=== PATIENT | female | born 1975 | race Caucasian/White ===

== ENCOUNTER 2021-05-30 22:15 | Inpatient (IN) | payer OTHER ==
[~2021-05-30] VITALS: Ht 162.6 cm; Wt 64.0 kg
[2021-05-30] MEDS ORDERED: IV NORMAL SALINE 1000ML BAG 1,000 ML IV ONE (23:00)
[2021-05-30] MEDS ORDERED: KETOROLAC 15 MG/ML VIAL. IVP ONE (23:00)
--- NOTE | 2021-05-30 23:00 | PHYS DOC ---
Past Medical History Past Medical History: No Pertinent History Past Surgical History: No Surgical History Smoking Status: Never Smoker Alcohol Use: None Drug Use: None General Adult EDM: Chief Complaint: SHORTNESS OF BREATH Problems: (1) COVID-19 HPI: HPI: 46-year-old female with no pertinent medical history presents to the emergency department complaining of shortness of breath and productive cough for the last 3 days along with headache intermittently no sudden onset fatigue and body aches. She was recently diagnosed with Covid approximately 9 days ago and is unvaccinated. She denies any further complaint. With EMS she was satting in the high 80s without oxygen, she was placed on 4 L nasal cannula with good improvement in her oxygen saturation. The patient admits to fever and chills; denies nausea, vomiting, chest pain, abdominal pain, urinary symptoms, recent trauma, or any other complaints. She has history of tubal ligation Review of Systems: Review of Systems: Constitutional: Admits to fever and chills. Eyes: Denies change in vision, pain. HENT: Denies congestion or sore throat. Respiratory: Admits to cough and shortness of. Cardiovascular: Denies chest pain or edema. GI: Denies abdominal pain, nausea. : Denies change in urination, dysuria. Musculoskeletal: Denies extremity pain, or trauma. Skin: Denies rash, skin change. Neurologic: Admits to headache, denies focal weakness. Psychiatric: Denies depression or anxiety. All other systems reviewed as negative except for what was mentioned in the HPI. Heart Score: C/O Chest Pain: No Family History: Family History: Noncontributory Current Medications: My Orders - KRISTYN MONTES DO Procedure Category Date Status Time Cbc W [employer] LAB 05/30/21 Logged 22:55 Basic Metabolic Panel LAB 05/30/21 Logged 22:55 Sars Cov2 ([place]) LAB 05/30/21 Logged 22:55 Sars Antigen [place] Rapid LAB 05/30/21 Logged 22:55 Chest Ap Only RAD 05/30/21 Logged 22:55 Urine Test HERMES 05/30/21 In Process 22:55 Ketorolac 15mg Vial PHA 05/30/21 Logged (Toradol 15mg Vial) 23:00 Iv Normal Saline PHA 05/30/21 Logged 1000ml Bag (Iv Sodium 23:00 Allergies: Allergies: Allergies Coded Allergies Type Severity Reaction Last Updated Verified No Known Drug Allergies 05/30/21 No Physical Exam: PE: Constitutional: No acute distress, appears unwell. HENT: Atraumatic, bilateral external ears normal, nose normal. Eyes: PERRLA, EOMI, conjunctiva normal, no discharge. Neck: Normal range of motion, supple, no stridor. Cardiovascular: Heart rate regular rhythm. 2+ radial pulses Lungs & Thorax: No respiratory distress, symmetrical expansion. Coarse breath sounds bilaterally. Abdomen: Soft, no tenderness Skin: Warm, dry. Extremities: No tenderness, no cyanosis, ROM intact, no edema. Neurologic: Alert and oriented X 3, normal motor function, normal sensory function, no focal deficits noted. Non ataxic gait. GCS 15. Psychologic: Affect normal, judgment normal, mood normal. Current Patient Data: Labs: Laboratory Tests Test 05/30/21 22:39 05/31/21 00:38 White Blood Count 7.9 x10^3/uL (4.0-11.0) Red Blood Count 4.45 x10^6/uL (3.50-5.40) Hemoglobin 14.4 g/dL (12.0-15.5) Hematocrit 41.1 % (36.0-47.0) Mean Corpuscular Volume 92 fL (79-100) Mean Corpuscular Hemoglobin 33 pg (25-35) Mean Corpuscular Hemoglobin Concent 35 g/dL (31-37) Red Cell Distribution Width 13.2 % (11.5-14.5) Platelet Count 298 x10^3/uL (140-400) Neutrophils (%) (Auto) 86 % (31-73) Lymphocytes (%) (Auto) 8 % (24-48) Monocytes (%) (Auto) 6 % (0-9) Eosinophils (%) (Auto) 0 % (0-3) Basophils (%) (Auto) 0 % (0-3) Neutrophils # (Auto) 6.8 x10^3/uL (1.8-7.7) Lymphocytes # (Auto) 0.6 x10^3/uL (1.0-4.8) Monocytes # (Auto) 0.4 x10^3/uL (0.0-1.1) Eosinophils # (Auto) 0.0 x10^3/uL (0.0-0.7) Basophils # (Auto) 0.0 x10^3/uL (0.0-0.2) Sodium Level 134 mmol/L (136-145) Potassium Level 3.3 mmol/L (3.5-5.1) Chloride Level 95 mmol/L (98-107) Carbon Dioxide Level 29 mmol/L (21-32) Anion Gap 10 (6-14) Blood Urea Nitrogen 20 mg/dL (7-20) Creatinine 0.9 mg/dL (0.6-1.0) Estimated GFR (Cockcroft-Gault) 67.4 Glucose Level 113 mg/dL (70-99) Calcium Level 8.9 mg/dL (8.5-10.1) SARS-CoV-2 Antigen (Rapid) Positive (NEGATIVE) Vital Signs: Vital Signs Date Time Temp Pulse Resp B/P (MAP) Pulse Ox O2 Delivery O2 Flow Rate FiO2 05/31/21 00:41 106 23 133/77 (95) 94 Nasal Cannula 4.0 05/31/21 00:26 106 18 127/76 (93) 97 Nasal Cannula 4.0 05/31/21 00:11 110 21 134/79 (97) 95 Nasal Cannula 4.0 05/30/21 23:56 114 16 136/80 (98) 96 Nasal Cannula 4.0 05/30/21 22:15 100.3 117 20 140/76 99 Nasal Cannula 4.0 100.3 Radiology/Procedures: Radiology/Procedures: X-ray: Multifocal infiltrates in batwing distribution Course & Med Decision Making: Course & Med Decision Making Patient with new oxygen requirement, Covid pneumonia. She has diffuse thick appearing infiltrates. We will cover her with Rocephin and azithromycin for community-acquired pneumonia given her longer course and grossly abnormal chest x-ray. New supplemental O2 requirement of 4L as she was hypoxic on RA. Patient will be admitted to Dr. Borjas Departure Departure Impression: Primary Impression: COVID-19 Disposition: ADMITTED INPATIENT (Dr. Borjas) Condition: STABLE KRISTYN MONTES DO May 30, 2021 23:00
[2021-05-30 23:08] LABS: BASO % 0 % (0-3); EOS % 0 % (0-3); HEMATOCRIT 41.1 % (36.0-47.0); HEMOGLOBIN 14.4 g/dL (12.0-15.5); LYMPH # 0.6 x10^3/uL (1.0-4.8); LYMPH % 8 % (24-48); MEAN CORPUSCULAR HEMOGLOBIN 33 pg (25-35); MEAN CORPUSCULAR HGB CONC 35 g/dL (31-37); MEAN CORPUSCULAR VOLUME 92 fL (79-100); MONO # 0.4 x10^3/uL (0.0-1.1); MONO % 6 % (0-9); NEUT # 6.8 x10^3/uL (1.8-7.7); NEUT % 86 % (31-73); PLATELET COUNT 298 x10^3/uL (140-400); RED BLOOD COUNT 4.45 x10^6/uL (3.50-5.40); RED CELL DISTRIBUTION WIDTH 13.2 % (11.5-14.5); WHITE BLOOD COUNT 7.9 x10^3/uL (4.0-11.0)
[2021-05-30 23:17] LABS: CALCIUM 8.9 mg/dL (8.5-10.1); CREATININE 0.9 mg/dL (0.6-1.0); GFR 67.4; POTASSIUM 3.3 mmol/L (3.5-5.1)
[2021-05-31] MEDS ORDERED: cefTRIAXone IV Push 2 GM VIAL. IVP ONE (01:15)
[2021-05-31] MEDS ORDERED: AZITHRMYCN 500MG IVPB FOR OMNI 250 ML IV ONE (01:15)
[2021-05-31] MEDS ORDERED: METOCLOPRAMIDE HCL 10 MG/2 ML VIAL. IVP ONE (02:45)
[2021-05-31 02:50] VITALS: BP 139/99
[2021-05-31] MEDS: ACETAMINOPHEN 325 MG TABLET. PO PRN ×3 (03:22→20:08)
--- NOTE | 2021-05-31 03:52 | RAD ---
Study: XR CHEST 1V Indication: Cough. Comparison: None. Findings: Basilar/subpleural consolidative opacities throughout both lungs with relative apical sparing. No lay ering effusion or pneumothorax. Within normal limits size of the cardiomediastinal silhouette given A P technique. Partially imaged levocurvature spanning the lower thoracic to upper lumbar spine. The bones appear so mewhat osteopenic but this could be technical. Impression: Bilateral consolidative opacities with a distribution often seen with an atypical/viral pneumonia. Fo llow-up is recommended to confirm resolution. Electronically signed by: MITALI LANGE MD (05/31/2021 3:50 AM) ALENA
[2021-05-31] MEDS ORDERED: MELA10CA PO (04:02)
[2021-05-31] MEDS ORDERED: HYDR12.58 PO (04:02)
[2021-05-31 04:37] LABS: % BANDS 4 % (0-9); % BASOS 1 % (0-3); % EOS 1 % (0-5); % LYMPHS 12 % (24-48); % MONOS 5 % (0-10); % MYELOS 1 % (0-0); % SEGS 76 % (35-66); PLT ESTIMATE ADEQUATE (ADEQUATE)
[2021-05-31 05:10] LABS: BILIRUBIN,URINE NEGATIVE (NEG); CLARITY,URINE CLEAR; COLOR,URINE YELLOW; NITRITE,URINE NEGATIVE (NEG); PROTEIN,URINE 100 mg/dL (NEG-TRACE); UROBILINOGEN,URINE 0.2 mg/dL (0.2 mg/dL)
[2021-05-31 05:18] LABS: BACTERIA,URINE MODERATE /HPF (0-FEW); RBC,URINE OCC /HPF (0-2)
[2021-05-31] MEDS ORDERED: hydrALAZINE 20 MG/ML VIAL. IVP PRN (06:15)
--- NOTE | 2021-05-31 06:28 | PDOC1 ---
History and Physical Date of Admission Date of Admission DATE: 05/31/21 TIME: 06:05 Identification/Chief Complaint Chief Complaint Shortness of breath Source Source: Chart review, Patient History of Present Illness History of Present Illness Patient is a 46-year-old female with past medical history HTN, who presents to the ED with complaints of worsening shortness of breath over the past 3 days. She reports associated cough, decreased appetite, fever, chills, body aches, and diarrhea. She recently tested positive for COVID-19 approximately 9 days ago. She has not been vaccinated. Upon EMS arrival her oxygen saturation was reportedly in the upper 80s on room air; this improved with 4 L nasal cannula. Upon arrival in the ED she was tachycardic, tachypneic, and febrile with T-max 100.7 F. Labs on admission, sodium 134, potassium 3.3, WBC 7.9. Chest x-ray showed bilateral consolidative opacities with a distribution often seen with an atypical/viral pneumonia. She received IV fluids and broad-spectrum antibiotics. Admit patient for further medical management. Past Medical History Cardiovascular: HTN Past Surgical History Past Surgical History: Tubal Ligation, Other (Uterine ablation, breast augmentation) Family History Family History: Hypertension Social History Smoke: No ALCOHOL: none Drugs: None Current Problem List Problem List Problems Medical Problems: (1) COVID-19 Status: Acute Current Medications Current Medications Current Medications Ketorolac Tromethamine (Toradol 15mg Vial) 15 mg 1X ONCE IVP Last administered on 05/30/21at 23:52; Start 05/30/21 at 23:00; Stop 05/30/21 at 23:36; Status DC Sodium Chloride 1,000 ml @ 1,000 mls/hr 1X ONCE IV Last administered on 05/30/21at 23:52; Start 05/30/21 at 23:00; Stop 05/30/21 at 23:59; Status DC Ceftriaxone Sodium (Rocephin) 2 gm 1X ONCE IVP Last administered on 05/31/21at 02:38; Start 05/31/21 at 01:15; Stop 05/31/21 at 01:16; Status DC Azithromycin 250 ml @ 250 mls/hr 1X ONCE IV Last administered on 05/31/21at 02:39; Start 05/31/21 at 01:15; Stop 05/31/21 at 02:14; Status DC Acetaminophen (Tylenol) 650 mg PRN Q4HRS PRN PO FEVER > 100.3'F Last administered on 05/31/21at 03:22; Start 05/31/21 at 01:15; Stop 06/01/21 at 01:14 Enoxaparin Sodium (Lovenox Per Pharmacy Prophylaxis Dosing) 1 each PRN DAILY PRN MC SEE COMMENTS; Start 05/31/21 at 01:15 Enoxaparin Sodium (Lovenox 40mg Syringe) 40 mg DAILY SQ ; Start 05/31/21 at 09:00 Metoclopramide HCl (Reglan Vial) 10 mg 1X ONCE IVP Last administered on 05/31/21at 03:02; Start 05/31/21 at 02:45; Stop 05/31/21 at 02:47; Status DC Active Scripts Active Reported Melatonin 10 Mg Capsule 1 Cap PO QHS 30 Days Hydrochlorothiazide Tablet (Hydrochlorothiazide) 12.5 Mg Tablet 2 Tab-Cap PO DAILY Allergies Allergies: Coded Allergies: No Known Drug Allergies (Unverified , 05/30/21) ROS Review of System GENERAL: Fever, chills, body aches. No history of weight change. SKIN: No bruising, hair changes or rashes. EYES: No blurred, double or loss of vision. NOSE AND THROAT: No history of nosebleeds, hoarseness or sore throat. HEART: Denies chest pain, denies palpitations. LUNGS: Cough, shortness of breath. Denies hemoptysis or wheezing. GASTROINTESTINAL: Decreased appetite, nausea, diarrhea. Denies vomiting or abdominal pain. GENITOURINARY: Denies dysuria, frequency, urgency, hematuria. NEUROLOGIC: Denies history of numbness, tingling, tremor or weakness. PSYCHIATRIC: Denies anxiety, denies depression. ENDOCRINE: No history of heat or cold intolerance, polyuria or polydipsia. EXTREMITIES: Denies muscle weakness, joint pain, pain on walking or stiffness. Physical Exam Physical Exam General: Alert, Oriented X3, Cooperative, mild distress HEENT: PERRLA, EOMI Lungs: Coarse breath sounds bilaterally, Normal air movement Heart: RRR, no murmurs Cardiovascular: S1, S2 Abdomen: Normal bowel sounds, Soft, No tenderness Extremities: No clubbing, No cyanosis Skin: No rashes, No significant lesion Neuro: Normal speech, Normal tone, Sensation intact Psych/Mental Status: Mental status NL, Mood NL Vitals Vitals Vital Signs Date Time Temp Pulse Resp B/P (MAP) Pulse Ox O2 Delivery O2 Flow Rate FiO2 05/31/21 04:53 Nasal Cannula 4.0 05/31/21 02:50 100.7 112 18 139/99 (112) 93 100.7 Labs Labs Laboratory Tests Test 05/30/21 22:39 05/31/21 00:38 05/31/21 03:55 White Blood Count 7.9 x10^3/uL (4.0-11.0) Red Blood Count 4.45 x10^6/uL (3.50-5.40) Hemoglobin 14.4 g/dL (12.0-15.5) Hematocrit 41.1 % (36.0-47.0) Mean Corpuscular Volume 92 fL (79-100) Mean Corpuscular Hemoglobin 33 pg (25-35) Mean Corpuscular Hemoglobin Concent 35 g/dL (31-37) Red Cell Distribution Width 13.2 % (11.5-14.5) Platelet Count 298 x10^3/uL (140-400) Neutrophils (%) (Auto) 86 % (31-73) Lymphocytes (%) (Auto) 8 % (24-48) Monocytes (%) (Auto) 6 % (0-9) Eosinophils (%) (Auto) 0 % (0-3) Basophils (%) (Auto) 0 % (0-3) Neutrophils # (Auto) 6.8 x10^3/uL (1.8-7.7) Lymphocytes # (Auto) 0.6 x10^3/uL (1.0-4.8) Monocytes # (Auto) 0.4 x10^3/uL (0.0-1.1) Eosinophils # (Auto) 0.0 x10^3/uL (0.0-0.7) Basophils # (Auto) 0.0 x10^3/uL (0.0-0.2) Segmented Neutrophils % 76 % (35-66) Band Neutrophils % 4 % (0-9) Lymphocytes % 12 % (24-48) Monocytes % 5 % (0-10) Eosinophils % 1 % (0-5) Basophils % 1 % (0-3) Myelocytes % 1 % (0-0) Platelet Estimate Adequate (ADEQUATE) Sodium Level 134 mmol/L (136-145) Potassium Level 3.3 mmol/L (3.5-5.1) Chloride Level 95 mmol/L (98-107) Carbon Dioxide Level 29 mmol/L (21-32) Anion Gap 10 (6-14) Blood Urea Nitrogen 20 mg/dL (7-20) Creatinine 0.9 mg/dL (0.6-1.0) Estimated GFR (Cockcroft-Gault) 67.4 Glucose Level 113 mg/dL (70-99) Calcium Level 8.9 mg/dL (8.5-10.1) SARS-CoV-2 Antigen (Rapid) Positive (NEGATIVE) Urine Collection Type Unknown Urine Color Yellow Urine Clarity Clear Urine pH 6.0 (<5.0-8.0) Urine Specific [place] 1.025 (1.000-1.030) Urine Protein 100 mg/dL (NEG-TRACE) Urine Glucose (UA) Negative mg/dL (NEG) Urine Ketones (Stick) 40 mg/dL (NEG) Urine Blood Negative (NEG) Urine Nitrite Negative (NEG) Urine Bilirubin Negative (NEG) Urine Urobilinogen Dipstick 0.2 mg/dL (0.2 mg/dL) Urine Leukocyte Esterase Negative (NEG) Urine RBC Occ /HPF (0-2) Urine WBC 5-10 /HPF (0-4) Urine Squamous Epithelial Cells Mod /LPF Urine Bacteria Moderate /HPF (0-FEW) Urine Mucus Mod /LPF Laboratory Tests Test 05/30/21 22:39 05/31/21 00:38 05/31/21 03:55 White Blood Count 7.9 x10^3/uL (4.0-11.0) Red Blood Count 4.45 x10^6/uL (3.50-5.40) Hemoglobin 14.4 g/dL (12.0-15.5) Hematocrit 41.1 % (36.0-47.0) Mean Corpuscular Volume 92 fL (79-100) Mean Corpuscular Hemoglobin 33 pg (25-35) Mean Corpuscular Hemoglobin Concent 35 g/dL (31-37) Red Cell Distribution Width 13.2 % (11.5-14.5) Platelet Count 298 x10^3/uL (140-400) Neutrophils (%) (Auto) 86 % (31-73) Lymphocytes (%) (Auto) 8 % (24-48) Monocytes (%) (Auto) 6 % (0-9) Eosinophils (%) (Auto) 0 % (0-3) Basophils (%) (Auto) 0 % (0-3) Neutrophils # (Auto) 6.8 x10^3/uL (1.8-7.7) Lymphocytes # (Auto) 0.6 x10^3/uL (1.0-4.8) Monocytes # (Auto) 0.4 x10^3/uL (0.0-1.1) Eosinophils # (Auto) 0.0 x10^3/uL (0.0-0.7) Basophils # (Auto) 0.0 x10^3/uL (0.0-0.2) Segmented Neutrophils % 76 % (35-66) Band Neutrophils % 4 % (0-9) Lymphocytes % 12 % (24-48) Monocytes % 5 % (0-10) Eosinophils % 1 % (0-5) Basophils % 1 % (0-3) Myelocytes % 1 % (0-0) Platelet Estimate Adequate (ADEQUATE) Sodium Level 134 mmol/L (136-145) Potassium Level 3.3 mmol/L (3.5-5.1) Chloride Level 95 mmol/L (98-107) Carbon Dioxide Level 29 mmol/L (21-32) Anion Gap 10 (6-14) Blood Urea Nitrogen 20 mg/dL (7-20) Creatinine 0.9 mg/dL (0.6-1.0) Estimated GFR (Cockcroft-Gault) 67.4 Glucose Level 113 mg/dL (70-99) Calcium Level 8.9 mg/dL (8.5-10.1) SARS-CoV-2 Antigen (Rapid) Positive (NEGATIVE) Urine Collection Type Unknown Urine Color Yellow Urine Clarity Clear Urine pH 6.0 (<5.0-8.0) Urine Specific [place] 1.025 (1.000-1.030) Urine Protein 100 mg/dL (NEG-TRACE) Urine Glucose (UA) Negative mg/dL (NEG) Urine Ketones (Stick) 40 mg/dL (NEG) Urine Blood Negative (NEG) Urine Nitrite Negative (NEG) Urine Bilirubin Negative (NEG) Urine Urobilinogen Dipstick 0.2 mg/dL (0.2 mg/dL) Urine Leukocyte Esterase Negative (NEG) Urine RBC Occ /HPF (0-2) Urine WBC 5-10 /HPF (0-4) Urine Squamous Epithelial Cells Mod /LPF Urine Bacteria Moderate /HPF (0-FEW) Urine Mucus Mod /LPF Images Images PATIENT: EVELYN PEDRAZA ACCOUNT: [id number] : 1975 LOCATION: [address] [place] [address] AGE: 46 SEX: F EXAM STATUS: ADM IN ORD. PHYSICIAN: KRISTYN MONTES DO REASON: cough PROCEDURE: CHEST AP ONLY Study: XR CHEST 1V Indication: Cough. Comparison: None. Findings: Basilar/subpleural consolidative opacities throughout both lungs with relative apical sparing. No layering effusion or pneumothorax. Within normal limits size of the cardiomediastinal silhouette given AP technique. Partially imaged levocurvature spanning the lower thoracic to upper lumbar spine. The bones appear somewhat osteopenic but this could be technical. Impression: Bilateral consolidative opacities with a distribution often seen with an atypical/viral pneumonia. Follow-up is recommended to confirm resolution. VTE Prophylaxis Ordered VTE Prophylaxis Devices: No VTE Pharmacological Prophylaxi: Yes Assessment/Plan Assessment/Plan Acute respiratory failure with hypoxia COVID-19 pneumonia Abnormal chest x-ray HTN Plan: Will initiate empiric antibiotics and remdesivir Follow daily LFTs We will treat patient with IV Decadron and supportive care CRP, procalcitonin pending Follow blood sugar closely; may need to initiate sliding scale insulin secondary to steroid use. 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
[2021-05-31] MEDS ORDERED: PIP/TAZO PER PHARMACY MC PRN (06:30)
[2021-05-31 07:00] VITALS: BP 120/73
[2021-05-31 09:36] LABS: ALBUMIN 2.1 g/dL (3.4-5.0); DIRECT BILIRUBIN 0.1 mg/dL (0.0-0.2); TOTAL BILIRUBIN 0.5 mg/dL (0.2-1.0); TOTAL PROTEIN 6.1 g/dL (6.4-8.2)
[2021-05-31] MEDS: ENOXAPARIN 40 MG/0.4 ML SYRINGE. SQ SCH (09:49)
[2021-05-31] MEDS: hydroCHLOROthiazide 25 MG TABLET PO SCH (09:49)
[2021-05-31] MEDS: LACTOBACILLUS RHAMNOSUS GG 1 CAPSULE. PO SCH ×2 (09:49→20:07)
[2021-05-31] MEDS: guaiFENesin/CODEINE 100mg/10mg 5 ML LIQUID PO PRN (09:50)
[2021-05-31] MEDS: DEXAMETHASONE SOD PHOS 4 MG/ML VIAL IVP SCH (09:59)
[2021-05-31 11:00] VITALS: BP 114/77
[2021-05-31] MEDS ORDERED: REMDESIVIR LOAD in IV NORMAL SALINE 250ML TV IV ONE (11:00)
--- NOTE | 2021-05-31 11:44 | NUR ---
Nurses note: Relayed COVID-19 positive result to the patient's RN, Acacia at 1132.
[2021-05-31 16:00] VITALS: BP 122/77
[2021-05-31 19:00] VITALS: BP 123/78
[2021-05-31] MEDS: PIPERACILLIN/TAZOBACTAM 3.375 GM in IV NORMAL SALINE 50ML 50 ML IV SCH (20:09)
[2021-05-31 23:00] VITALS: BP 126/78
[2021-06-01] MEDS: PIPERACILLIN/TAZOBACTAM 3.375 GM in IV NORMAL SALINE 50ML 50 ML IV SCH ×5 (00:48→23:22)
[2021-06-01 03:00] VITALS: BP 140/89
[2021-06-01] MEDS: guaiFENesin/CODEINE 100mg/10mg 5 ML LIQUID PO PRN ×2 (05:43→12:19)
[2021-06-01] MEDS: ACETAMINOPHEN 325 MG TABLET. PO PRN ×2 (05:44→17:17)
[2021-06-01 07:45] VITALS: BP 131/85
[2021-06-01 08:23] LABS: BASO % 0 % (0-3); EOS % 0 % (0-3); HEMATOCRIT 39.8 % (36.0-47.0); HEMOGLOBIN 13.7 g/dL (12.0-15.5); LYMPH # 0.9 x10^3/uL (1.0-4.8); LYMPH % 10 % (24-48); MEAN CORPUSCULAR HEMOGLOBIN 32 pg (25-35); MEAN CORPUSCULAR HGB CONC 34 g/dL (31-37); MEAN CORPUSCULAR VOLUME 93 fL (79-100); MONO # 0.9 x10^3/uL (0.0-1.1); MONO % 11 % (0-9); NEUT # 6.9 x10^3/uL (1.8-7.7); NEUT % 79 % (31-73); PLATELET COUNT 337 x10^3/uL (140-400); RED CELL DISTRIBUTION WIDTH 13.3 % (11.5-14.5); WHITE BLOOD COUNT 8.7 x10^3/uL (4.0-11.0)
[2021-06-01 08:41] LABS: ALBUMIN 2.2 g/dL (3.4-5.0); CALCIUM 8.8 mg/dL (8.5-10.1); CREATININE 0.8 mg/dL (0.6-1.0); DIRECT BILIRUBIN 0.1 mg/dL (0.0-0.2); GFR 77.2; POTASSIUM 3.9 mmol/L (3.5-5.1); TOTAL BILIRUBIN 0.3 mg/dL (0.2-1.0); TOTAL PROTEIN 6.6 g/dL (6.4-8.2)
[2021-06-01] MEDS: ENOXAPARIN 40 MG/0.4 ML SYRINGE. SQ SCH (10:06)
[2021-06-01] MEDS: LACTOBACILLUS RHAMNOSUS GG 1 CAPSULE. PO SCH ×2 (10:06→21:55)
[2021-06-01] MEDS: DEXAMETHASONE SOD PHOS 4 MG/ML VIAL IVP SCH (10:07)
[2021-06-01] MEDS: hydroCHLOROthiazide 25 MG TABLET PO SCH (10:07)
[2021-06-01] MEDS: REMDESIVIR 100mg in NORMAL SALINE 250ML X 4 DAYS IV SCH (10:08)
[2021-06-01 11:00] VITALS: BP 117/81
--- NOTE | 2021-06-01 13:15 | NUR ---
SW following. Discussed with RN, pt from home, 4L (does not use oxygen at home), regular diet. COVID-19 positive. Pt on Remdesivir. RN advised no SW needs at this time. SW will continue to follow.
--- NOTE | 2021-06-01 14:33 | PDOC ---
[employer] PROGRESS NOTE Date of Service DOS: DATE: 06/01/21 TIME: 14:32 Chief Complaint Chief Complaint Acute respiratory failure with hypoxia COVID-19 pneumonia Abnormal chest x-ray HTN Mild transaminitis Severe protein malnutrition Plan: Will initiate empiric antibiotics and remdesivir Follow daily LFTs We will treat patient with IV Decadron and supportive care CRP, procalcitonin pending Follow blood sugar closely; may need to initiate sliding scale insulin secondary to steroid use. 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 She reports associated cough, decreased appetite, fever, chills, body aches, and diarrhea. She recently tested positive for COVID-19 approximately 9 days ago. She has not been vaccinated. Upon EMS arrival her oxygen saturation was reportedly in the upper 80s on room air; this improved with 4 L nasal cannula. Upon arrival in the ED she was tachycardic, tachypneic, and febrile with T-max 100.7 F. Labs on admission, sodium 134, potassium 3.3, WBC 7.9. Chest x-ray showed bilateral consolidative opacities with a distribution often seen with an atypical/viral pneumonia. She received IV fluids and broad-spectrum antibiotics. Admit patient for further medical management. 06/01/2021 No acute events overnight. Currently saturating 95% on 4 L nasal cannula. Currently on Remdesivir. No concerns from nursing at this time. Patient's chart, labs, images were reviewed and discussed with RN Vitals/I&O Vitals/I&O: Vital Signs Date Time Temp Pulse Resp B/P (MAP) Pulse Ox O2 Delivery O2 Flow Rate FiO2 06/01/21 11:00 97.5 87 20 117/81 (93) 91 Nasal Cannula 4.0 97.5 I & O 05/31/21 05/31/21 06/01/21 14:59 22:59 06:59 Intake Total 550 ml 120 ml Output Total 1300 ml 150 ml Balance -750 ml -30 ml Physical Exam General: Alert, Oriented X3, Cooperative Heart: Regular rate Lungs: Clear, Crackles Abdomen: Normal bowel sounds Extremities: No clubbing, No cyanosis Skin: No rashes, No significant lesion Labs Labs: Laboratory Tests Test 06/01/21 08:00 White Blood Count 8.7 x10^3/uL (4.0-11.0) Red Blood Count 4.30 x10^6/uL (3.50-5.40) Hemoglobin 13.7 g/dL (12.0-15.5) Hematocrit 39.8 % (36.0-47.0) Mean Corpuscular Volume 93 fL (79-100) Mean Corpuscular Hemoglobin 32 pg (25-35) Mean Corpuscular Hemoglobin Concent 34 g/dL (31-37) Red Cell Distribution Width 13.3 % (11.5-14.5) Platelet Count 337 x10^3/uL (140-400) Neutrophils (%) (Auto) 79 % (31-73) Lymphocytes (%) (Auto) 10 % (24-48) Monocytes (%) (Auto) 11 % (0-9) Eosinophils (%) (Auto) 0 % (0-3) Basophils (%) (Auto) 0 % (0-3) Neutrophils # (Auto) 6.9 x10^3/uL (1.8-7.7) Lymphocytes # (Auto) 0.9 x10^3/uL (1.0-4.8) Monocytes # (Auto) 0.9 x10^3/uL (0.0-1.1) Eosinophils # (Auto) 0.0 x10^3/uL (0.0-0.7) Basophils # (Auto) 0.0 x10^3/uL (0.0-0.2) Sodium Level 139 mmol/L (136-145) Potassium Level 3.9 mmol/L (3.5-5.1) Chloride Level 103 mmol/L (98-107) Carbon Dioxide Level 29 mmol/L (21-32) Anion Gap 7 (6-14) Blood Urea Nitrogen 20 mg/dL (7-20) Creatinine 0.8 mg/dL (0.6-1.0) Estimated GFR (Cockcroft-Gault) 77.2 Glucose Level 123 mg/dL (70-99) Calcium Level 8.8 mg/dL (8.5-10.1) Total Bilirubin 0.3 mg/dL (0.2-1.0) Direct Bilirubin 0.1 mg/dL (0.0-0.2) Aspartate Amino Transf (AST/SGOT) 103 U/L (15-37) Alanine Aminotransferase (ALT/SGPT) 64 U/L (14-59) Alkaline Phosphatase 78 U/L (46-116) C-Reactive Protein, Quantitative 290.4 mg/L (0-3.3) Total Protein 6.6 g/dL (6.4-8.2) Albumin 2.2 g/dL (3.4-5.0) Assessment and Plan Assessmemt and Plan Problems Medical Problems: (1) COVID-19 Status: Acute Comment Review of Relevant I have reviewed the following items chely (where applicable) has been applied. Medications: Current Medications Medications (Trade) Dose Ordered Sig/Suma Route PRN Reason Start Time Stop Time Status Last Admin Dose Admin Remdesivir 100 mg/ Sodium Chloride 230 ml @ 460 mls/hr Q24H IV 06/01/21 11:00 06/04/21 11:29 06/01/21 10:08 Acetaminophen (Tylenol) 650 mg PRN Q4HRS PRN PO PAIN 06/01/21 05:45 06/01/21 05:44 Justifications for Admission Other Justification BETTY RICHARDS MD Jun 01, 2021 14:33
[2021-06-01 15:00] VITALS: BP 133/86
--- NOTE | 2021-06-01 17:00 | NUR ---
Patient noted to be up to bathroom without oxygen, relating she did not want to use the bsc at that time, and was "going to be quick" so did not want to use the oxygen tank. Patient did not exhibit respiratory distress, but nurse checked sat, which read 71% initially. Pt sat recovered quickly to 92% on 4 liters. Reinforced to patient that it is very important that she not be up without oxgen. Removed specimen pain from bsc, as that was a reason she did not feel comfortable using it. Patient related that she understands that she needs to have oxygen on at all times.
[2021-06-01 19:00] VITALS: BP 127/77
[2021-06-01 23:00] VITALS: BP 143/90
[2021-06-02 03:00] VITALS: BP 148/87
[2021-06-02 07:00] VITALS: BP 156/85
[2021-06-02 08:02] LABS: ALBUMIN 2.1 g/dL (3.4-5.0); CALCIUM 8.6 mg/dL (8.5-10.1); CREATININE 0.7 mg/dL (0.6-1.0); DIRECT BILIRUBIN 0.1 mg/dL (0.0-0.2); GFR 90.1; POTASSIUM 3.3 mmol/L (3.5-5.1); TOTAL BILIRUBIN 0.3 mg/dL (0.2-1.0); TOTAL PROTEIN 5.9 g/dL (6.4-8.2)
[2021-06-02] MEDS: DEXAMETHASONE SOD PHOS 4 MG/ML VIAL IVP SCH (09:15)
[2021-06-02] MEDS: PIPERACILLIN/TAZOBACTAM 3.375 GM in IV NORMAL SALINE 50ML 50 ML IV SCH ×4 (09:15→23:58)
[2021-06-02] MEDS: hydroCHLOROthiazide 25 MG TABLET PO SCH (09:16)
[2021-06-02] MEDS: ENOXAPARIN 40 MG/0.4 ML SYRINGE. SQ SCH (09:16)
[2021-06-02] MEDS: LACTOBACILLUS RHAMNOSUS GG 1 CAPSULE. PO SCH ×2 (09:16→20:47)
[2021-06-02] MEDS: ACETAMINOPHEN 325 MG TABLET. PO PRN (09:18)
[2021-06-02] MEDS: guaiFENesin/CODEINE 100mg/10mg 5 ML LIQUID PO PRN ×2 (09:52→20:47)
[2021-06-02] MEDS ORDERED: POTASSIUM CHLORIDE 20 MEQ TABLET.ER. PO ONE (10:00)
[2021-06-02 11:00] VITALS: BP 128/81
[2021-06-02] MEDS ORDERED: ONDANSETRON PF 4 MG/2 ML VIAL. IVP PRN (11:30)
[2021-06-02] MEDS: REMDESIVIR 100mg in NORMAL SALINE 250ML X 4 DAYS IV SCH (12:44)
[2021-06-02 15:00] VITALS: BP 145/73
--- NOTE | 2021-06-02 15:37 | PDOC ---
[facility] PROGRESS NOTE Date of Service DOS: DATE: 06/02/21 TIME: 15:35 Chief Complaint Chief Complaint Acute respiratory failure with hypoxia COVID-19 pneumonia Abnormal chest x-ray HTN Mild transaminitis Severe protein malnutrition Acute diarrheapending C. difficile PCR Mild hypokalemia Plan: IV electrolyte replacement pending C. difficile PCR Will initiate empiric antibiotics and remdesivir Follow daily LFTs We will treat patient with IV Decadron and supportive care CRP, procalcitonin pending Follow blood sugar closely; may need to initiate sliding scale insulin secondary to steroid use. 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 She reports associated cough, decreased appetite, fever, chills, body aches, and diarrhea. She recently tested positive for COVID-19 approximately 9 days ago. She has not been vaccinated. Upon EMS arrival her oxygen saturation was reportedly in the upper 80s on room air; this improved with 4 L nasal cannula. Upon arrival in the ED she was tachycardic, tachypneic, and febrile with T-max 100.7 F. Labs on admission, sodium 134, potassium 3.3, WBC 7.9. Chest x-ray showed bilateral consolidative opacities with a distribution often seen with an atypical/viral pneumonia. She received IV fluids and broad-spectrum antibiotics. Admit patient for further medical management. 06/01/2021 No acute events overnight. Currently saturating 95% on 4 L nasal cannula. Currently on Remdesivir. No concerns from nursing at this time. Patient's garo rt, labs, images were reviewed and discussed with RN 06/02/2021 No acute events overnight. Patient saturating 94% on 4 L nasal cannula. Afebrile. Currently on day 3 out of 4 of Remdesivir. Nurse reported multiple diarrhea episodes between 6-8 yesterday. Pending C. difficile PCR. Patient's chart, labs, images were reviewed and discussed with RN Vitals/I&O Vitals/I&O: Vital Signs Date Time Temp Pulse Resp B/P (MAP) Pulse Ox O2 Delivery O2 Flow Rate FiO2 8/10/21 15:00 98.9 70 18 145/73 (97) 92 Nasal Cannula 4.0 98.9 I & O 06/01/21 06/01/21 06/02/21 15:00 23:00 07:00 Intake Total 400 ml 50 ml Output Total 0 ml Balance 400 ml 50 ml Physical Exam General: Alert, Oriented X3, Cooperative Heart: Regular rate Lungs: Clear, Crackles Abdomen: Normal bowel sounds Extremities: No clubbing, No cyanosis Skin: No rashes, No significant lesion Labs Labs: Laboratory Tests Test 06/02/21 07:15 Sodium Level 142 mmol/L (136-145) Potassium Level 3.3 mmol/L (3.5-5.1) Chloride Level 104 mmol/L (98-107) Carbon Dioxide Level 28 mmol/L (21-32) Anion Gap 10 (6-14) Blood Urea Nitrogen 20 mg/dL (7-20) Creatinine 0.7 mg/dL (0.6-1.0) Estimated GFR (Cockcroft-Gault) 90.1 Glucose Level 120 mg/dL (70-99) Calcium Level 8.6 mg/dL (8.5-10.1) Total Bilirubin 0.3 mg/dL (0.2-1.0) Direct Bilirubin 0.1 mg/dL (0.0-0.2) Aspartate Amino Transf (AST/SGOT) 70 U/L (15-37) Alanine Aminotransferase (ALT/SGPT) 62 U/L (14-59) Alkaline Phosphatase 70 U/L (46-116) C-Reactive Protein, Quantitative 105.1 mg/L (0-3.3) Total Protein 5.9 g/dL (6.4-8.2) Albumin 2.1 g/dL (3.4-5.0) Assessment and Plan Assessmemt and Plan Problems Medical Problems: (1) COVID-19 Status: Acute Comment Review of Relevant I have reviewed the following items chely (where applicable) has been applied. Medications: Current Medications Medications (Trade) Dose Ordered Sig/Suma Route PRN Reason Start Time Stop Time Status Last Admin Dose Admin Potassium Chloride (Klor-Con) 40 meq 1X ONCE PO 06/02/21 10:00 06/02/21 10:01 DC 06/02/21 09:19 Ondansetron HCl (Zofran) 4 mg PRN Q6HRS PRN IVP NAUSEA/VOMITING 06/02/21 11:30 06/02/21 12:44 Justifications for Admission Other Justification BETTY RICHARDS MD Jun 02, 2021 15:37
[2021-06-02 19:00] VITALS: BP 126/81
[2021-06-02 23:25] VITALS: BP 145/90
[2021-06-03 03:00] VITALS: BP 151/90
[2021-06-03] MEDS: PIPERACILLIN/TAZOBACTAM 3.375 GM in IV NORMAL SALINE 50ML 50 ML IV SCH ×4 (05:42→23:39)
[2021-06-03] MEDS: guaiFENesin/CODEINE 100mg/10mg 5 ML LIQUID PO PRN ×2 (06:19→20:34)
[2021-06-03] MEDS: ACETAMINOPHEN 325 MG TABLET. PO PRN ×3 (06:26→18:47)
[2021-06-03 07:00] VITALS: BP 117/81
[2021-06-03 07:32] LABS: ALBUMIN 2.2 g/dL (3.4-5.0); CALCIUM 8.4 mg/dL (8.5-10.1); CREATININE 0.8 mg/dL (0.6-1.0); DIRECT BILIRUBIN 0.1 mg/dL (0.0-0.2); GFR 77.2; POTASSIUM 3.9 mmol/L (3.5-5.1); TOTAL BILIRUBIN 0.3 mg/dL (0.2-1.0); TOTAL PROTEIN 5.3 g/dL (6.4-8.2)
[2021-06-03] MEDS: hydroCHLOROthiazide 25 MG TABLET PO SCH (08:16)
[2021-06-03] MEDS: ENOXAPARIN 40 MG/0.4 ML SYRINGE. SQ SCH (08:16)
[2021-06-03] MEDS: DEXAMETHASONE SOD PHOS 4 MG/ML VIAL IVP SCH (08:17)
[2021-06-03] MEDS: LACTOBACILLUS RHAMNOSUS GG 1 CAPSULE. PO SCH ×2 (08:17→20:27)
[2021-06-03 11:00] VITALS: BP 130/88
--- NOTE | 2021-06-03 11:02 | NUR ---
SW following. Discussed with RN, no changes, pt still requiring oxygen, COVID-19 positive. SW will continue to follow.
[2021-06-03] MEDS: REMDESIVIR 100mg in NORMAL SALINE 250ML X 4 DAYS IV SCH (12:38)
--- NOTE | 2021-06-03 14:39 | PDOC ---
[facility] PROGRESS NOTE Date of Service DOS: DATE: 06/03/21 TIME: 14:38 Chief Complaint Chief Complaint Acute respiratory failure with hypoxia COVID-19 pneumonia Abnormal chest x-ray HTN Mild transaminitis Severe protein malnutrition Acute diarrheapending C. difficile PCR Mild hypokalemia Plan: IV electrolyte replacement pending C. difficile PCR Will initiate empiric antibiotics and remdesivir Follow daily LFTs We will treat patient with IV Decadron and supportive care CRP, procalcitonin pending Follow blood sugar closely; may need to initiate sliding scale insulin secondary to steroid use. 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 She reports associated cough, decreased appetite, fever, chills, body aches, and diarrhea. She recently tested positive for COVID-19 approximately 9 days ago. She has not been vaccinated. Upon EMS arrival her oxygen saturation was reportedly in the upper 80s on room air; this improved with 4 L nasal cannula. Upon arrival in the ED she was tachycardic, tachypneic, and febrile with T-max 100.7 F. Labs on admission, sodium 134, potassium 3.3, WBC 7.9. Chest x-ray showed bilateral consolidative opacities with a distribution often seen with an atypical/viral pneumonia. She received IV fluids and broad-spectrum antibiotics. Admit patient for further medical management. 06/01/2021 No acute events overnight. Currently saturating 95% on 4 L nasal cannula. Currently on Remdesivir. No concerns from nursing at this time. Patient's garo rt, labs, images were reviewed and discussed with RN 06/02/2021 No acute events overnight. Patient saturating 94% on 4 L nasal cannula. Afebrile. Currently on day 3 out of 4 of Remdesivir. Nurse reported multiple diarrhea episodes between 6-8 yesterday. Pending C. difficile PCR. Patient's chart, labs, images were reviewed and discussed with RN 06/03/2021 No acute events overnight. Patient seen and examined bedside. Saturating 94% on 4 L nasal cannula. Continues to be on IV Remdesivir today is day 4 out of 4. Patient's chart, labs, images were reviewed and discussed with RN Vitals/I&O Vitals/I&O: Vital Signs Date Time Temp Pulse Resp B/P (MAP) Pulse Ox O2 Delivery O2 Flow Rate FiO2 06/03/21 11:00 98.6 84 17 130/88 (102) 93 Nasal Cannula 4.0 98.6 I & O 06/02/21 06/02/21 06/03/21 15:00 23:00 07:00 Intake Total 400 ml 300 ml 100 ml Balance 400 ml 300 ml 100 ml Physical Exam General: Alert, Oriented X3, Cooperative Heart: Regular rate Lungs: Clear, Crackles Abdomen: Normal bowel sounds Extremities: No clubbing, No cyanosis Skin: No rashes, No significant lesion Labs Labs: Laboratory Tests Test 06/03/21 05:45 Sodium Level 139 mmol/L (136-145) Potassium Level 3.9 mmol/L (3.5-5.1) Chloride Level 103 mmol/L (98-107) Carbon Dioxide Level 29 mmol/L (21-32) Anion Gap 7 (6-14) Blood Urea Nitrogen 20 mg/dL (7-20) Creatinine 0.8 mg/dL (0.6-1.0) Estimated GFR (Cockcroft-Gault) 77.2 Glucose Level 76 mg/dL (70-99) Calcium Level 8.4 mg/dL (8.5-10.1) Total Bilirubin 0.3 mg/dL (0.2-1.0) Direct Bilirubin 0.1 mg/dL (0.0-0.2) Aspartate Amino Transf (AST/SGOT) 48 U/L (15-37) Alanine Aminotransferase (ALT/SGPT) 64 U/L (14-59) Alkaline Phosphatase 75 U/L (46-116) C-Reactive Protein, Quantitative 59.3 mg/L (0-3.3) Total Protein 5.3 g/dL (6.4-8.2) Albumin 2.2 g/dL (3.4-5.0) Assessment and Plan Assessmemt and Plan Problems Medical Problems: (1) COVID-19 Status: Acute Comment Review of Relevant I have reviewed the following items chely (where applicable) has been applied. Justifications for Admission Other Justification BETTY RICHARDS MD Jun 03, 2021 14:39
[2021-06-03 15:00] VITALS: BP 131/91
[2021-06-03 19:00] VITALS: BP 130/80
[2021-06-03] MEDS ORDERED: FLUCONAZOLE 100 MG TABLET. PO ONE (21:30)
[2021-06-03 23:00] VITALS: BP 149/88
[2021-06-04 03:00] VITALS: BP 140/84
[2021-06-04] MEDS: PIPERACILLIN/TAZOBACTAM 3.375 GM in IV NORMAL SALINE 50ML 50 ML IV SCH ×3 (06:28→17:39)
[2021-06-04 07:00] VITALS: BP 134/90
[2021-06-04] MEDS: LACTOBACILLUS RHAMNOSUS GG 1 CAPSULE. PO SCH ×2 (08:49→21:19)
[2021-06-04] MEDS: hydroCHLOROthiazide 25 MG TABLET PO SCH (08:52)
[2021-06-04] MEDS: ENOXAPARIN 40 MG/0.4 ML SYRINGE. SQ SCH (08:52)
[2021-06-04] MEDS: DEXAMETHASONE SOD PHOS 4 MG/ML VIAL IVP SCH (08:52)
[2021-06-04 08:55] LABS: ALBUMIN 2.1 g/dL (3.4-5.0); CREATININE 0.6 mg/dL (0.6-1.0); DIRECT BILIRUBIN 0.1 mg/dL (0.0-0.2); GFR 107.6; POTASSIUM 3.8 mmol/L (3.5-5.1); TOTAL BILIRUBIN 0.4 mg/dL (0.2-1.0); TOTAL PROTEIN 5.2 g/dL (6.4-8.2)
[2021-06-04] MEDS: REMDESIVIR 100mg in NORMAL SALINE 250ML X 4 DAYS IV SCH (10:56)
[2021-06-04 11:00] VITALS: BP 138/89
[2021-06-04 15:00] VITALS: BP 131/86
--- NOTE | 2021-06-04 15:21 | PDOC ---
[facility] PROGRESS NOTE Date of Service DOS: DATE: 06/04/21 TIME: 15:20 Chief Complaint Chief Complaint Acute respiratory failure with hypoxia COVID-19 pneumonia Abnormal chest x-ray HTN Mild transaminitis Severe protein malnutrition Acute diarrheapending C. difficile PCR Mild hypokalemia Plan: IV electrolyte replacement pending C. difficile PCR Will initiate empiric antibiotics and remdesivir Follow daily LFTs We will treat patient with IV Decadron and supportive care CRP, procalcitonin pending Follow blood sugar closely; may need to initiate sliding scale insulin secondary to steroid use. 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 She reports associated cough, decreased appetite, fever, chills, body aches, and diarrhea. She recently tested positive for COVID-19 approximately 9 days ago. She has not been vaccinated. Upon EMS arrival her oxygen saturation was reportedly in the upper 80s on room air; this improved with 4 L nasal cannula. Upon arrival in the ED she was tachycardic, tachypneic, and febrile with T-max 100.7 F. Labs on admission, sodium 134, potassium 3.3, WBC 7.9. Chest x-ray showed bilateral consolidative opacities with a distribution often seen with an atypical/viral pneumonia. She received IV fluids and broad-spectrum antibiotics. Admit patient for further medical management. 06/01/2021 No acute events overnight. Currently saturating 95% on 4 L nasal cannula. Currently on Remdesivir. No concerns from nursing at this time. Patient's garo rt, labs, images were reviewed and discussed with RN 06/02/2021 No acute events overnight. Patient saturating 94% on 4 L nasal cannula. Afebrile. Currently on day 3 out of 4 of Remdesivir. Nurse reported multiple diarrhea episodes between 6-8 yesterday. Pending C. difficile PCR. Patient's chart, labs, images were reviewed and discussed with RN 06/03/2021 No acute events overnight. Patient seen and examined bedside. Saturating 94% on 4 L nasal cannula. Continues to be on IV Remdesivir today is day 4 out of 4. Patient's chart, labs, images were reviewed and discussed with RN 06/04/2021 No acute events overnight. Patient seen and examined bedside and resting comfortably. Saturating 98% on 4 L nasal cannula. Patient completed her IV remdesivir. Continue IV steroids. 6-minute walk test today. Possible discharge in the next 24 hours. Vitals/I&O Vitals/I&O: Vital Signs Date Time Temp Pulse Resp B/P (MAP) Pulse Ox O2 Delivery O2 Flow Rate FiO2 06/04/21 11:00 98.2 77 18 138/89 (105) 93 Nasal Cannula 4.0 98.2 I & O 06/03/21 06/03/21 06/04/21 15:00 23:00 07:00 Output Total 100 ml Balance -100 ml Physical Exam General: Alert, Oriented X3, Cooperative Heart: Regular rate Lungs: Clear, Crackles Abdomen: Normal bowel sounds Extremities: No clubbing, No cyanosis Skin: No rashes, No significant lesion Labs Labs: Laboratory Tests Test 06/03/21 21:41 06/04/21 06:30 Glucose (Fingerstick) 111 mg/dL (70-99) Sodium Level 138 mmol/L (136-145) Potassium Level 3.8 mmol/L (3.5-5.1) Chloride Level 102 mmol/L (98-107) Carbon Dioxide Level 31 mmol/L (21-32) Anion Gap 5 (6-14) Blood Urea Nitrogen 15 mg/dL (7-20) Creatinine 0.6 mg/dL (0.6-1.0) Estimated GFR (Cockcroft-Gault) 107.6 Glucose Level 73 mg/dL (70-99) Calcium Level 8.0 mg/dL (8.5-10.1) Total Bilirubin 0.4 mg/dL (0.2-1.0) Direct Bilirubin 0.1 mg/dL (0.0-0.2) Aspartate Amino Transf (AST/SGOT) 47 U/L (15-37) Alanine Aminotransferase (ALT/SGPT) 54 U/L (14-59) Alkaline Phosphatase 73 U/L (46-116) C-Reactive Protein, Quantitative 77.9 mg/L (0-3.3) Total Protein 5.2 g/dL (6.4-8.2) Albumin 2.1 g/dL (3.4-5.0) Assessment and Plan Assessmemt and Plan Problems Medical Problems: (1) COVID-19 Status: Acute Comment Review of Relevant I have reviewed the following items chely (where applicable) has been applied. Medications: Current Medications Medications (Trade) Dose Ordered Sig/Suma Route PRN Reason Start Time Stop Time Status Last Admin Dose Admin Fluconazole (Diflucan) 150 mg 1X ONCE PO 06/03/21 21:30 06/03/21 21:31 DC 06/03/21 23:39 Justifications for Admission Other Justification BETTY RICHARDS MD Jun 04, 2021 15:20
[2021-06-04 19:00] VITALS: BP 122/82
[2021-06-04] MEDS: guaiFENesin/CODEINE 100mg/10mg 5 ML LIQUID PO PRN (21:19)
[2021-06-04 23:00] VITALS: BP 158/89
[2021-06-05] MEDS: PIPERACILLIN/TAZOBACTAM 3.375 GM in IV NORMAL SALINE 50ML 50 ML IV SCH ×3 (00:15→12:20)
[2021-06-05 03:00] VITALS: BP 171/77
[2021-06-05 06:23] VITALS: BP 133/63
[2021-06-05 07:28] LABS: ALBUMIN 2.2 g/dL (3.4-5.0); CALCIUM 8.7 mg/dL (8.5-10.1); CREATININE 0.7 mg/dL (0.6-1.0); DIRECT BILIRUBIN 0.1 mg/dL (0.0-0.2); GFR 90.1; POTASSIUM 4.5 mmol/L (3.5-5.1); TOTAL BILIRUBIN 0.5 mg/dL (0.2-1.0); TOTAL PROTEIN 5.5 g/dL (6.4-8.2)
[2021-06-05] MEDS: LACTOBACILLUS RHAMNOSUS GG 1 CAPSULE. PO SCH (08:46)
[2021-06-05] MEDS: hydroCHLOROthiazide 25 MG TABLET PO SCH (08:46)
[2021-06-05] MEDS: DEXAMETHASONE SOD PHOS 4 MG/ML VIAL IVP SCH (08:47)
[2021-06-05] MEDS: ENOXAPARIN 40 MG/0.4 ML SYRINGE. SQ SCH (08:47)
[2021-06-05 11:00] VITALS: BP 100/67
[2021-06-05] MEDS ORDERED: PRED20TA PO (11:16)
--- NOTE | 2021-06-05 11:17 | DISCH ---
DISCHARGE INSTRUCTIONS Condition on Discharge Condition on Discharge: Stable Activity After Discharge Activity Instructions for Disc: Activity as tolerated Lifting Instructions after Dis: Do not lift >10 pounds Exercise Instruction after Dis: Walk 15 min, 3 x per day Driving Instructions after Dis: Do not drive today Diet after Discharge Diet after Discharge: Regular Contacting the DR. after DC Call your doctor for: Concerns you may have (If O2 saturation decreases less than 88% please go to urgent care immediately) Follow-Up Follow up with: PCP within 2 weeks of discharge BETTY RICHARDS MD Jun 05, 2021 11:17
--- NOTE | 2021-06-05 11:22 | NUR ---
DARYN following. Discussed with RN, discharge order for pt to discharge home after 6 minute walk. COVID-19 positive. DARYN will continue to follow. Addendum: 06/05/21 at 1507 by MARIYA STEARNS 6 minute walk completed - pt needs 2L with exertion. Pt does not have a preference of provider. [facility] to [facility]. Addendum: 06/05/21 at 1620 by MARIYA STEARNS Tank provided to RN for pt to take home. [facility]. No further SW needs.
[2021-06-05 15:00] VITALS: BP 124/68
--- NOTE | 2021-06-05 17:01 | NUR ---
Pt left unit at 1700 by wheelchair via private vehicle. Pt's IV removed without complication, VSS. Discharge paperwork, including medications, follow-up, and education discussed with pt. COVID instructions provided. Additional concerns addressed.
--- NOTE | 2021-06-08 08:39 | PDOC3 ---
[facility]-Discharge Summary Date of Admission: Date of Admission: May 31, 2021 Date of Discharge: Date of Discharge: Jun 05, 2021 Discharge Diagnosis: Discharge Diagnosis: Acute respiratory failure with hypoxia COVID-19 pneumonia Abnormal chest x-ray HTN Mild transaminitis Severe protein malnutrition Acute diarrheapending C. difficile PCR Mild hypokalemia Hospital Course: Hospital Course: 46-year-old female with past medical history HTN, who presents to the ED with complaints of worsening shortness of breath over the past 3 days. She reports associated cough, decreased appetite, fever, chills, body aches, and diarrhea. She recently tested positive for COVID-19 approximately 9 days ago. She has not been vaccinated. Upon EMS arrival her oxygen saturation was reportedly in the upper 80s on room air; this improved with 4 L nasal cannula. Upon arrival in the ED she was tachycardic, tachypneic, and febrile with T-max 100.7 F. Labs on admission, sodium 134, potassium 3.3, WBC 7.9. Chest x-ray showed bilateral consolidative opacities with a distribution often seen with an atypical/viral pneumonia. She received IV fluids and broad-spectrum antibiotics. Admit patient for further medical management. 06/01/2021 No acute events overnight. Currently saturating 95% on 4 L nasal cannula. Currently on Remdesivir. No concerns from nursing at this time. Patient's chart, labs, images were reviewed and discussed with RN 06/02/2021 No acute events overnight. Patient saturating 94% on 4 L nasal cannula. Afebrile. Currently on day 3 out of 4 of Remdesivir. Nurse reported multiple diarrhea episodes between 6-8 yesterday. Pending C. difficile PCR. Patient's chart, labs, images were reviewed and discussed with RN 06/03/2021 No acute events overnight. Patient seen and examined bedside. Saturating 94% on 4 L nasal cannula. Continues to be on IV Remdesivir today is day 4 out of 4. Patient's chart, labs, images were reviewed and discussed with RN 06/04/2021 No acute events overnight. Patient seen and examined bedside and resting comfortably. Saturating 98% on 4 L nasal cannula. Patient completed her IV remdesivir. Continue IV steroids. 6-minute walk test today. Possible discharge in the next 24 hours. By day of discharge, pt was clinically stable and ready for discharge. Rest of hospital course was uneventful Disposition: Disposition/Orders: D/C to Home Activity: Activity: Resume previous activity Diet: Diet: Cardiac Medications: Home Meds Active Scripts Prednisone (PREDNISONE) 20 Mg Tablet, 1 TAB PO DAILY for prednisone taper for 5 Days, #5 TAB Prov:BETTY RICHARDS MD 06/05/21 Reported Medications Melatonin (MELATONIN) 10 Mg Capsule, 1 CAP PO QHS for sleep for 30 Days, #30 CAP 0 Refills 05/31/21 Hydrochlorothiazide (HYDROCHLOROTHIAZIDE TABLET) 12.5 Mg Tablet, 2 TAB-CAP PO DAILY for DIURETIC, TAB 0 Refills 05/31/21 Scheduled Hydrochlorothiazide (Hydrochlorothiazide Tablet), 2 TAB-CAP PO DAILY, (Reported) Melatonin (Melatonin), 1 CAP PO QHS, (Reported) Prednisone (Prednisone), 1 TAB PO DAILY Total Time: Total Time: Total time spent was 35 minutes in preparing scripts, discharge planning with SW and RN, and preparing this discharge summary. Justicifation of Admission Dx: Justifications for Admission: Justification of Admission Dx: Yes Respiratory Failure: Severe Resp Distress BETTY RICHARDS MD Jun 08, 2021 08:39
== END 2021-06-05 17:03 | disposition home or self-care (01) | DRG 177 ==
LOC: ER 22:15 → 5 NORTH 05-31 01:50
PROVIDERS: ADMIT Family Medicine; ATTEND Family Medicine
PROC: XW033E5 Introduction of Remdesivir Anti-infective into Peripheral Vein, Percutaneous Approach, New Technology Group 5 (ICD-10-PCS; principal; 2021-05-31)
DX: U07.1 COVID-19 (principal); J96.01 Acute respiratory failure with hypoxia; J12.82 Pneumonia due to coronavirus disease 2019; E43 Unspecified severe protein-calorie malnutrition; E87.6 Hypokalemia; I10 Essential (primary) hypertension; R74.01 Elevation of levels of liver transaminase levels; Z82.49 Family history of ischemic heart disease and other diseases of the circulatory system; Z98.51 Tubal ligation status; Z79.899 Other long term (current) drug therapy; Z28.3 Underimmunization status; T38.0X5A Adverse effect of glucocorticoids and synthetic analogues, initial encounter; Y92.89 Other specified places as the place of occurrence of the external cause
CPT/HCPCS: 36415; 71045; 80048; 80076; 81001; 82962; 84145; 85007; 85025; 86140; 87086; 87426; 94618; 96365; 96368; 96375; J0456; J0696; J1100; J1650; J1885; J2405; J2543; J2765; J7030; J7050; U0003; U0005; 99285-25; G0378

== ENCOUNTER → 2022-02-15 | Outpatient (CLI) | payer OTHER ==
[~2022-02-15] MED LIST: HYDR12.58 PO; MELA10CA PO; PRED20TA PO
--- NOTE | 2022-02-16 14:18 | KCIC ---
XR LUMBAR SPINE 4+V, XR SACRUM AND COCCYX 2+VIEWS History: Reason: Pt. fell 1 week ago, painful sacrum/coccyx. / Spl. Instructions: / History: Technique: 5 views lumbar spine and 3 views of the sacrum and coccyx. Comparison: None. Findings: Lumbar spine: Mild leftward curvature the lumbar spine centered at L2-L3. Normal vertebral body heigh t. No acute fracture. Mild retrolisthesis L5 on S1. Mild degenerative disc changes most prominent L5- S1. Mild lower lumbar facet arthropathy. Sacrum and coccyx: Symmetric appearance of the sacral iliac joints. No erosions. Normal AP alignment of the hips. Vascular calcifications. No acute fracture. Impression: 1. No acute osseous abnormality. 2. Mild lumbar spondylosis with leftward curvature. Electronically signed by: John De Paz DO (02/16/2022 2:16 PM) [id number]
== END ==
LOC: KCIC 15:34
PROVIDERS: ATTEND Chiropractor
DX: M47.817 Spondylosis without myelopathy or radiculopathy, lumbosacral region (principal); M43.8X6 Other specified deforming dorsopathies, lumbar region; M48.8X6 Other specified spondylopathies, lumbar region; M43.17 Spondylolisthesis, lumbosacral region
CPT/HCPCS: 72110; 72220